=== PATIENT | female | born 1965 | race Caucasian/White ===

== ENCOUNTER 2019-06-08 06:05 | Day surgery (SDC) | payer BC, OTHER ==
[2019-06-04 15:18] VITALS: BMI 30.7
[2019-06-08] MEDS ORDERED: MIDAZOLAM HCL 2 MG/2 ML SINGLE DOSE VIAL ONE (07:22)
[2019-06-08] MEDS ORDERED: ePHEDrine SULFATE 50 MG/1 ML AMPULE ONE (07:22)
[2019-06-08] MEDS ORDERED: PROPOFOL 20 ML ONE ×2 (07:22)
[2019-06-08] MEDS ORDERED: SUCCINYLCHOLINE CHLORIDE 200 MG/10 ML SYRINGE ONE (07:22)
[2019-06-08] MEDS ORDERED: KETOROLAC TROMETHAMINE 30 MG/1 ML VIAL ONE (07:25)
[2019-06-08] MEDS ORDERED: DEXAMETHASONE SOD PHOSPHATE 4 MG/1 ML VIAL ONE (07:25)
--- NOTE | 2019-06-08 07:35 | HP ---
History & Physical Update - History History: No Change - Physical Physical: No Change - Assessment Assessment: No Change - Plan Plan: No Change (Consent signed and witnessed all questions answered)
--- NOTE | 2019-06-08 09:31 | OP ---
Operative Note - Note: Operative Date: 06/08/19 Pre-Operative Diagnosis: 53yo with perimenopausal menometrorrhagia, thick endometrium Operation: Hysteroscopy/Polypectomy/D&C Findings: Multiple Polyps Overgrown Endometrium Post-Operative Diagnosis: Same as Pre-op Surgeon: Bertha Jones Anesthesiologist/PUDDLER HELPER: Agustin Vincent Anesthesia: MAC Specimens Removed: Polyps and Endometrial curettings Estimated Blood Loss (mls): 5 Instrument used (Debridements only): Symphion Drains, Volume Out (mls): 100 Fluid Volume Replaced (mls): 900 Operative Report Dictated: Yes
[2019-06-08 10:09] VITALS: BP 141/68; PULSE 74; TEMP 98.9
[2019-06-08] MEDS ORDERED: ONDANSETRON 4 MG/2 ML VIAL IVPUSH PRN (10:24)
[2019-06-08] MEDS ORDERED: oxyCODONE HCL 5 MG TABLET PO PRN ×2 (10:24)
[2019-06-08] MEDS ORDERED: LACTATED RINGERS SOLUTION 1,000 ML IV SCH (10:30)
--- NOTE | 2019-06-08 15:28 | OP ---
DATE OF OPERATION: 06/08/2019 PREOPERATIVE DIAGNOSIS: A 53-year-old, perimenopausal, with menometrorrhagia, thick endometrium, not in sync with menstrual cycle. OPERATION: Hysteroscopy, polypectomy, dilation and curettage. FINDINGS: Multiple polyps, overgrown endometrium. POSTOPERATIVE DIAGNOSIS: A 53-year-old, perimenopausal, with menometrorrhagia, thick endometrium, not in sync with menstrual cycle. SURGEON: Cristian Carbajal MD ANESTHESIOLOGIST: Agustin Vincent MD ANESTHESIA: MAC. SPECIMENS REMOVED: Polyps and endometrial curettings. DESCRIPTION OF THE OPERATIVE PROCEDURE: After assuring informed consent, patient was brought to the operating room, where she was placed in dorsal lithotomy position. Perineum and vagina were prepped and draped in sterile fashion. Cervix was made visible with Mohr retractors. The anterior cervical lip was articulated with single-tooth tenaculum. Cervix was gradually dilated with DeLee dilators to accommodate 6.3-mm hysteroscope, which was introduced into the uterus without any difficulty. Intrauterine contents were visualized and noted as above. Multiple polyps and overgrown lining. The Symphion resectoscope was introduced through the hysteroscope and resection of the polyps and excessive endometrium was performed in a consecutive fashion. Uterus cleared of clots and debris. Excellent hemostasis noted. All the excess tissue was resected. All the instruments were removed from uterus, cervix, and vagina. Estimated blood loss was 5 mL. Patient put out 100 mL of urine and received 900 mL of IV fluids. She tolerated the procedure well. All sponge and instrument counts were correct x2. She was brought to the recovery room in stable condition. CRISTIAN CARBAJAL M.D. [id number]
--- NOTE | 2019-06-09 15:47 | PATH ---
Surgical Pathology Report Patient Name: MONO SANCHEZ [facility]. Rec. #: [id number] /Age/Gender: 1965 (Age: 53) / F Account: [id number] Location: [facility] SURGICAL Taken: 06/08/2019 Received: 06/08/2019 Reported: 06/09/2019 Physicians: Bertha Jones M.D. Specimen(s) Received POLYPS ENDOMETRIAL CURETTINGS Clinical History Menometrorrhagia Final Diagnosis POLYPS AND ENDOMETRIAL CURETTINGS: ENDOMETRIAL POLYP. FRAGMENTS OF SECRETORY TYPE ENDOMETRIUM. SEPARATE FRAGMENTS OF ENDOCERVICAL TISSUE AND SQUAMOUS EPITHELIUM WITH NO SIGNIFICANT PATHOLOGIC CHANGE. Electronically Signed Mele Garcias M.D. Gross Description Received in formalin labeled "polyps and endometrial curettings," is a 4.8 x 4.8 x 0.5 cm aggregate of sharp brown soft tissue fragments. The formalin is filtered and the specimen is entirely submitted in 6 cassettes. /06/08/2019 saudi06/08/2019
== END 2019-06-08 10:25 | disposition home or self-care (01) ==
LOC: JASU-SURG 06:05
PROVIDERS: ATTEND Obstetrics & Gynecology
PROC: 0UB98ZX Excision of Uterus, Via Natural or Artificial Opening Endoscopic, Diagnostic (ICD-10-PCS; principal; 2019-06-08 07:30)
PROC: 0UDB7ZX Extraction of Endometrium, Via Natural or Artificial Opening, Diagnostic (ICD-10-PCS; 2019-06-08 07:30)
DX: N92.1 Excessive and frequent menstruation with irregular cycle (principal); N84.0 Polyp of corpus uteri
CPT/HCPCS: 84703; 88305-TC; 94760